=== PATIENT | female | born 1955 | race Caucasian/White ===

== ENCOUNTER 2016-05-09 15:55 | Outpatient (RCR) | payer BC ==
--- OUTSIDE RECORDS SUMMARY | 2016-04-08 08:30 | XMS REPORT | Continuity of Care Document ---
Author Author [facility] Organization [facility] Address Unknown Phone Unavailable Care Team Providers Care Workforce Development Vice President Name Role Phone Burton Hartman PCP [phone] Source Comments Some departments are not documenting in the electronic medical record. 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 S/P ankle ligament repair 12/05/2008 Social History Tobacco Use Types Packs/Day Years Used Date Never Smoker Alcohol Use Drinks/Week oz/Week Comments No Last Filed Vital Signs Vital Sign Reading Time Taken Blood Pressure 152/82 09/22/2012 10:25 AM CDT Pulse 60 09/22/2012 10:25 AM CDT Temperature 36.7 C (98 F) 03/09/2011 11:51 AM [employer] Respiratory Rate - - Height 1.626 m (5' 4") 03/08/2011 10:04 PM [employer] Weight 91.581 kg (201 lb 14.4 03/08/2011 10:04 PM [employer]AD oz) Body Mass Index 34.64 03/08/2011 10:04 PM [employer] Oxygen Saturation 97% 03/09/2011 11:51 AM [employer] Plan of Care Health Maintenance Due Date Last Done Comments Physical (Comprehensive) 1961 Exam Pertussis Vaccine 1965 Tetanus Vaccine 07/11/1971 Cervical Cancer Screening 07/11/1975 Breast Cancer Screening 1994 Colorectal Cancer 2004 Screening Shingles Vaccine 2014 Influenza Vaccine 11/23/2015 Results from Last 3 Months Not on file
== END 2016-05-21 13:12 | disposition home or self-care (01) ==
PROVIDERS: ATTEND Orthopaedic Surgery
DX: M75.102 Unspecified rotator cuff tear or rupture of left shoulder, not specified as traumatic (principal)

== ENCOUNTER → 2019-03-05 | Outpatient (CLI) | payer BC ==
--- NOTE | 2019-03-08 09:17 | Diagnostic Imaging Report ---
INDICATION: Routine screening. Comparison is made with prior mammogram 03/13/2015 and 06/02/2013. 2-D and 3-D bilateral screening mammography was performed with CAD. The current study was also evaluated with a Computer Aided Detection (CAD) system. 3-D tomosynthesis was also performed and reviewed. Scattered fibroglandular densities are identified bilaterally. No mass or malignant appearing microcalcifications are identified. The axillae are unremarkable. IMPRESSION: No mammographic features suspicious for malignancy are identified. ACR BI-RADS Category 1: Negative. Result letter will be mailed to the patient. Note: At least 10% of breast cancer is not imaged by mammography. Dictated by: Dictated on workstation # [id number]
== END ==
LOC: RAD 08:12
PROVIDERS: ATTEND Obstetrics & Gynecology Female Pelvic Medicine and Reconstructive Surgery
DX: Z12.31 Encounter for screening mammogram for malignant neoplasm of breast (principal)
CPT/HCPCS: 77067